=== PATIENT | male | born 1970 | race Caucasian/White ===

== ENCOUNTER 2019-11-14 08:00 | Outpatient (CLI) | payer OTHER ==
--- NOTE | 2019-11-14 16:55 | XRAY Report ---
PROCEDURE: Shoulder 3 View LT INDICATIONS: ACROMIOCLAVICULAR JOINT PAIN TECHNIQUE: 3 views of the shoulder were acquired. COMPARISON: None. FINDINGS: Bones: No fractures or dislocations but a prior acromioplasty may have been performed at the AC join t. The joint is wide, and old trauma or alternatively could explain that appearance.. No suspicious bony lesions. Visualized ribs appear intact. Soft tissues: No suspicious soft tissue calcifications. IMPRESSION: Please correlate clinically for whether prior acromioplasty has been performed. No acute trauma found. Reviewed by: Juvenal Solis MD on 11/14/2019 4:53 PM PDT Approved by: Juvenal Solis MD on 11/14/2019 4:53 PM PDT Station ID: [id number]
[2019-11-14 20:04] LABS: BASOPHILS % (AUTO) 0.4 %; EOSINOPHILS # (AUTO) 0.1 10^3/uL (0.0-0.7); HGB - HEMOGLOBIN 15.3 g/dL (14.0-18.0); MEAN CORPUSCULAR HEMOGLOBIN 31.8 pg (27.0-31.0); MEAN CORPUSCULAR HGB CONC 34.2 g/dL (32.0-36.0); MEAN CORPUSCULAR VOLUME 92.9 fL (80.0-94.0); MEAN PLATELET VOLUME 10.3 fL (7.4-11.4); MONOCYTES # (AUTO) 0.6 10^3/uL (0.0-1.0); MONOCYTES % (AUTO) 7.7 %; NEUTROPHILS # (AUTO) 4.6 10^3/uL (1.5-6.6); NEUTROPHILS % (AUTO) 63.3 %; PLT - PLATELET COUNT 290 10^3/uL (130-450); RED BLOOD COUNT 4.81 10^6/uL (4.70-6.10); RED CELL DISTRIBUTION WIDTH 12.8 % (12.0-15.0); WHITE BLOOD COUNT 7.3 x10^3/uL (4.8-10.8)
[2019-11-14 20:24] LABS: ALBUMIN/GLOBULIN RATIO 2.1 (1.0-2.2); CREATININE 1.1 mg/dL (0.6-1.2); TOTAL PROTEIN 7.4 g/dL (6.7-8.2)
== END 2019-11-14 23:59 | disposition home or self-care (01) ==
LOC: DI.S 08:00
PROVIDERS: ATTEND Physician Assistant Medical
DX: M25.512 Pain in left shoulder (principal); I10 Essential (primary) hypertension
CPT/HCPCS: 36415; 80053; 84443; 85025

== ENCOUNTER 2020-03-24 16:31 | Outpatient (CLI) | payer OTHER ==
--- NOTE | 2020-03-26 10:47 | MRI Report ---
PROCEDURE: Shoulder LT W/O INDICATIONS: STRAIN OF MUSCLES/TENDONS OF LT SHOULDER TECHNIQUE: Noncontrast oblique coronal T2 fast spin echo with fat saturation, oblique sagittal T1 spin echo and T2 fast spin echo with fat saturation, axial T1 spin echo and T2 fast spin echo with fat saturation t hrough the shoulder. COMPARISON: None. FINDINGS: Image quality: Excellent. Rotator cuff: There is distal supraspinatus and infraspinatus tendinosis and low-grade articular and bursal surface partial-thickness tear at their insertions on humeral head extending to musculotendino us junction. Distal subscapularis tendinosis and low-grade intrasubstance partial thickness tear is a lso seen. No full-thickness rotator cuff tendon rupture. No significant rotator cuff muscle atrophy o n sagittal images. Bones and bursae: No bone marrow contusions or fractures. [id number] acromioclavicular joint o steophytic changes are seen with downward osteophyte formation depressing on musculotendinous junctio n of supraspinatus.. The acromion demonstrates conventional anatomy, without an os acromiale. No pa thologic subacromial/subdeltoid bursal fluid is present. Capsule and soft tissues: In the absence of intra-articular contrast, the labrum and glenohumeral li gaments appear grossly intact. The long head of the biceps tendon demonstrates normal location and m orphology. The rotator interval appears normal, without fibrosis. The coracohumeral ligament is nor mal in thickness. IMPRESSION: 1. Tendinosis and low-grade articular and bursal surface partial-thickness tear involving distal supr aspinatus and infraspinatus at their insertions on humeral head extending to musculotendinous junctio n. Distal subscapularis tendinosis and low-grade intrasubstance partial thickness tear. No full-thick ness rotator cuff tendon rupture. 2. Mild acromioclavicular joint osteoarthritis. 3. No gross focal labral tear in the absence of intra-articular contrast. Reviewed by: Augie Ramirez MD on 03/26/2020 10:45 AM PST Approved by: Augie Ramirez MD on 03/26/2020 10:45 AM PST Station ID: [id number]
== END 2020-03-24 16:32 | disposition home or self-care (01) ==
LOC: DI 16:31
PROVIDERS: ATTEND Orthopaedic Surgery
DX: M75.112 Incomplete rotator cuff tear or rupture of left shoulder, not specified as traumatic (principal); M19.012 Primary osteoarthritis, left shoulder

== ENCOUNTER 2020-03-31 22:44 | Emergency (ER) | payer OTHER ==
[2020-03-31] MEDS ORDERED: DEXAMETHASONE 10 MG/ML VIAL PO STA (23:38)
[2020-03-31] MEDS ORDERED: CHERRY SYRUP 10 ML UDC PO ONE (23:38)
[2020-03-31] MEDS ORDERED: KETOROLAC 60 MG/2 ML VIAL IM STA (23:38)
--- NOTE | 2020-04-01 00:57 | ED Physician Documentation ---
History of Present Illness - Stated complaint Stated Complaint: MED REACTION - Chief complaint Chief Complaint: General - History obtained from History obtained from: Patient - History of Present Illness Timing: How many weeks ago (3) - Additonal information Additional information: 49-year-old male who has had a prior injury to his left shoulder has chronic AC osteoarthritis and tendinitis in his shoulder. He has had injections done of cortisone which did help over the summer and these have now worn off and the patient has continued to work. 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 He has had worsening of his symptoms he has been back in to see the orthopedic surgeon and MRI of the shoulder has been done demonstrating the tendinosis and incomplete tear of the rotator cuff. He has not had his follow-up visit as yet. He has come to the emergency department today with progressive and intolerable pain. He is taken IcyHot and aspirin as well as a pain reliever from the first-aid kit at work and none of this is helped. He feels that there is some swelling to his hand today and pain in his shoulder but he is able to move the shoulder through some range of motion but this hurts. He is irritable and his blood pressure is elevated. He does have a history of hypertension that is currently not treated as he had intolerable side effects from his last medication. Review of Systems Constitutional: denies: Fever Eyes: denies: Decreased vision Ears: denies: Ear pain Nose: denies: Congestion Throat: denies: Sore throat Cardiac: denies: Chest pain / pressure, Palpitations Respiratory: denies: Dyspnea, Cough GI: denies: Nausea, Vomiting : denies: Dysuria Musculoskeletal: reports: Extremity pain, Joint pain, Extremity swelling. denies: Neck pain, Back pain Neurologic: denies: Generalized weakness, Focal weakness, Numbness PD PAST MEDICAL HISTORY - Present Medications Home Medications: Ambulatory Orders Medication Instructions Recorded Confirmed traMADol [Ultram] 50 - 100 mg PO Q6H PRN #20 tablet 04/01/20 - Allergies Allergies/Adverse Reactions: Allergies Allergy/AdvReac Type Severity Reaction Status Date / Time No Known Drug Allergies Allergy Verified 03/31/20 23:03 PD ED PE NORMAL - Vitals Vital signs reviewed: Yes (tachy and hypertensive ) - General General: Alert and oriented X 3, Well developed/nourished, Other (Appears to be in pain with test consultant tone and flattened affect) - HEENT HEENT: Atraumatic, PERRL, EOMI - Respiratory Respiratory: No respiratory distress - Derm Derm: Normal color, Warm and dry, No rash - Extremities Extremities: No deformity, Other (There is mild tenderness to the left shoulder anteriorly and laterally. He is able to hold his arm in abduction and there is a fair ROM to the shoulder which is painful but does not arrest movement or cause any significant reaction from the patient.) - Neuro Neuro: Alert and oriented X 3, repair specialist 2-12 intact, No motor deficit, No sensory deficit, Normal speech Eye Opening: Spontaneous Motor: Obeys Commands Verbal: Oriented GCS Score: 15 - Psych Psych: Normal mood, Normal affect Results - Vitals Vitals: Vital Signs - 24 hr 03/31/20 04/01/20 04/01/20 22:57 00:06 00:30 Temperature 37.1 C 37.1 C Heart Rate 130 H 108 H 110 H Respiratory 18 18 16 Rate Blood Pressure 200/131 H 168/110 H 142/96 H O2 Saturation 96 97 94 04/01/20 01:08 Temperature Heart Rate 101 H Respiratory 16 Rate Blood Pressure 148/92 H O2 Saturation 95 Oxygen O2 Source Room air PD MEDICAL DECISION MAKING - ED course Complexity details: reviewed old records, reviewed results, considered differential, d/w patient ED course: 49-year-old male with left shoulder pain that is chronic has an exacerbation of his pain that has become intolerable. He does have a MRI which is reviewed and shows tendinosis and he is administered dexamethasone 10 mg orally and Toradol 60 mg IM and he has some improvement in his pain. His blood pressure and pulse improved dramatically. He is eventually administered tramadol as well and I have provided a prescription for some tramadol. He is reluctant to take any narcotic pain reliever. He does not appear to be getting adequate relief with Tylenol or ibuprofen.He does not have prearranged follow-up with Dr. Loza in 5 days time. I have indicated the patient that treatment of tendinosis usually requires rest of the tendon and I have asked him to stop working and he is reluctant to do this. Departure - Departure Disposition: 01 Home, Self Care Clinical Impression: Tendonitis of shoulder, left Condition: Stable Instructions: Tendonitis and Tenosynovitis Follow-Up: Rober White MD [Provider Admit Priv/Credential] - GILLIAN ASHBY PA-C [Provider Admit Priv/Credential] - Prescriptions: traMADol [Ultram] 50 - 100 mg PO Q6H PRN #20 tablet PRN Reason: Pain Forms: Activity restrictions Discharge Date/Time: 04/01/20 01:08
[2020-04-01] MEDS ORDERED: traMADol 50 MG TABLET PO STA (00:59)
[2020-04-01 01:09] VITALS: BP 148/92
== END 2020-04-01 01:08 | disposition home or self-care (01) ==
LOC: ED 22:44
DX: M75.82 Other shoulder lesions, left shoulder (principal); M70.812 Other soft tissue disorders related to use, overuse and pressure, left shoulder; X50.0XXA Overexertion from strenuous movement or load, initial encounter; Y93.89 Activity, other specified; Y99.0 Civilian activity done for income or pay; M19.012 Primary osteoarthritis, left shoulder; I10 Essential (primary) hypertension; R00.0 Tachycardia, unspecified
CPT/HCPCS: 96372; 99283; 99284; A9270

== ENCOUNTER 2020-05-03 17:05 | Outpatient (CLI) | payer OTHER | END 2020-05-03 17:06 | disposition home or self-care (01) | LOC: COV 17:05 | PROVIDERS: ATTEND Orthopaedic Surgery | DX: Z01.812 Encounter for preprocedural laboratory examination (principal); Z20.828 Contact with and (suspected) exposure to other viral communicable diseases; M75.112 Incomplete rotator cuff tear or rupture of left shoulder, not specified as traumatic ==

== ENCOUNTER 2020-05-09 06:31 | Day surgery (SDC) | payer OTHER ==
[2020-05-09] MEDS ORDERED: LACTATED RINGERS 1,000 ML IV ONE ×2 (06:33→11:57)
[2020-05-09] MEDS ORDERED: ceFAZolin 2 GM/50 ML 2 GM/50 ML BAG IV ONE (06:45)
--- NOTE | 2020-05-09 07:08 | ANESTHESIA ---
Pre-Anesthesia VS, & Labs - Diagnosis L RCR tear - Procedure L shoulder arthroscopy w possible RCR Vital Signs: Temp Pulse Resp BP Pulse Ox 36.8 C 86 12 150/99 H 96 05/09/20 06:33 05/09/20 06:33 05/09/20 06:33 05/09/20 06:33 05/09/20 06:33 Height: 6 ft Weight (kg): 94.3 kg Body Mass Index: 28.2 BMI Classification: Overweight - NPO >8 hours - Lab Results Lab results reviewed: Yes Home Medications and Allergies Home Medications: Ambulatory Orders Losartan/Hydrochlorothiazide [Losartan-Hctz 100-12.5 mg Tab] 1 each PO DAILY 04/24/20 Losartan/Hydrochlorothiazide [Losartan-Hctz 100-12.5 mg Tab] 1 each PO DAILY 1 06/25/19 Allergies/Adverse Reactions: Allergies Allergy/AdvReac Type Severity Reaction Status Date / Time bee venom protein (honey bee) Allergy Anaphylaxis Verified 04/24/20 14:58 menthol Allergy Respiratory Verified 04/24/20 14:58 Anes History & Medical History - Anesthetic History Anesthesia Complications: reports: No previous complications Family history of Anesthesia Complications: Denies Family history of Malignant Hyperthermia: Denies - Medical History Cardiovascular: reports: Hypertension Pulmonary: reports: None Gastrointestinal: reports: GERD Urinary: reports: None Musculoskeletal: reports: None Endocrine/Autoimmune: reports: None Skin: reports: None - Surgical History Orthopedic: Arthroscopic surgery, Other (knee scope) Exam General: Alert, Oriented x3, Cooperative Dental: Poor dentition, Other (none loose, several missing) Mouth Opening: Greater than 4 Fingerbreadths Neck Mobility: Normal Mallampati classification: I Thyromental Distance: greater than 6 cm Respiratory: Lungs clear, Normal breath sounds, No respiratory distress Cardiovascular: Regular rate Neurological: Normal speech Mental/Cognitive Status: Alert/Oriented X3, Normal for patient Cognitive Status: Within normal limits Plan Anesthesia Type: General, Supraclavicular Block Regional Block: Per Surgeon's request for Post Op pain control Consent for Procedure(s) Verified and Reviewed: Yes Code Status: Attempt Resuscitation ASA classification: 2-Mild systemic disease Is this case an emergency?: No
[2020-05-09] MEDS ORDERED: ROPIVACAINE 0.5% PF 20 ML AMPULE ONE (07:10)
[2020-05-09] MEDS ORDERED: MIDAZOLAM 2 MG/2 ML VIAL ONE (07:11)
[2020-05-09] MEDS ORDERED: fentaNYL 100 MCG/2 ML VIAL ONE (07:11)
[2020-05-09] MEDS ORDERED: PROPOFOL 200 MG/20 ML VIAL IVP ONE ×2 (07:13→10:33)
[2020-05-09] MEDS ORDERED: ROCURONIUM 50 MG/5 ML VIAL ONE ×2 (07:15→10:28)
[2020-05-09] MEDS ORDERED: EPINEPHrine 1 MG/ML AMP ONE (07:16)
[2020-05-09] MEDS ORDERED: DEXAMETHASONE 4 MG/ML VIAL ONE (07:17)
[2020-05-09] MEDS ORDERED: LIDOCAINE-MPF 2% 5 ML VIAL ONE (07:17)
[2020-05-09] MEDS ORDERED: fentaNYL 100 MCG/2 ML VIAL IVP PRN (07:59)
[2020-05-09] MEDS ORDERED: METOCLOPRAMIDE 10 MG/2 ML VIAL IVP PRN (07:59)
[2020-05-09] MEDS ORDERED: MORPHINE 2 MG/ML CARPUJECT IVP PRN (07:59)
[2020-05-09] MEDS ORDERED: HYDROmorphone 0.5 MG/0.5 ML SYRINGE IVP PRN ×2 (07:59→11:49)
[2020-05-09] MEDS ORDERED: ATROPINE ABBOJECT 1 MG/10 ML SYRINGE IVP PRN (07:59)
[2020-05-09] MEDS ORDERED: ePHEDrine 50 MG/ML VIAL IVP PRN (07:59)
[2020-05-09] MEDS ORDERED: ONDANSETRON 4 MG/2 ML VIAL IVP PRN (07:59)
[2020-05-09] MEDS ORDERED: NALOXONE 0.4 MG/ML VIAL IVP PRN (07:59)
[2020-05-09] MEDS ORDERED: LACTATED RINGERS 1,000 ML IV SCH (08:00)
[2020-05-09] MEDS ORDERED: EPINEPHrine 1 MG/ML AMP IR ONE (08:40)
[2020-05-09] MEDS ORDERED: ONDANSETRON 4 MG/2 ML VIAL ONE ×2 (08:45→12:03)
[2020-05-09] MEDS ORDERED: ACETAMINOPHEN 1,000 MG/100 ML 100 ML IV ONE (08:45)
[2020-05-09] MEDS ORDERED: ePHEDrine 50 MG/ML VIAL IVP ONE (09:16)
[2020-05-09] MEDS ORDERED: SUGAMMADEX 200 MG/2 ML VIAL IVP ONE (11:20)
--- NOTE | 2020-05-09 11:29 | OPERATIVE REPORT ---
Operative Report - General Procedure Date: 05/09/20 Planned Procedure: Arthroscopy, possible rotator cuff repair left shoulder Pre-Op Diagnosis: Rotator cuff tear left shoulder Procedure Performed: Arthroscopy left shoulder with arthroscopic assisted mini open repair rotator cuff left shoulder Post Op Diagnosis: Complete, full-thickness retracted rotator cuff tear left shoulder - Procedure Note Primary Surgeon: Rober White MD Secondary Surgeon: Dino CALI Anesthesia Provider: Tia Ivory CRNA Anesthesia Technique: General ET tube, Regional block Estimated Blood Loss (mL): 50 Indications: 50-year-old man with chronic atraumatic pain left shoulder. Shoulder pain has persisted over the past several months despite nonoperative treatment. He has had previous surgery to the left shoulder. His previous surgery was several years ago and consisted of a repair of an acromioclavicular dislocation. He has had also debridement of the left shoulder in the past. 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 His routine radiographs are normal. His MRI scan suggested both bursal and articular partial tears but not a definite complete tear. His exam showed relatively good strength but painful movement with positive impingement signs and good motion Findings: At the time of surgery, glenohumeral arthroscopy revealed intact labrum and bi ceps. The articular cartilage of the glenohumeral joint appeared normal. The supraspinatus footprint looked relatively normal as well as the subscapularis. Most of the abnormality was on entering the subacromial space which was very difficult to visualize initially because of bursitis and adhesions but that the subacromial space. After removal of adhesions and bursal tissue, a rotator cuff tear was identified mostly involving the junction of the supraspinatus and infraspinatus. This was a more posterior tear was retracted. The anterior portion of the cuff did not have much mobility and neither did the posterior. There was a relatively fixed tear.Because of lack of complete visualization of the subacromial space, a mini open procedure was utilized, partly because of all of the previous adhesions, inflammation and some bleeding. Complications: None noted - Other Other Information/Narrative: This is a 50-year-old gentleman who was brought to the operating room. He is given general endotracheal anesthesia as well as a shoulder block. He was placed supine in a beachchair position. His head was secured with a disposable facemask. His neck was placed in a neutral position and slightly turned to the right. His knees were bent and put. He was placed in sequential compression device to lower extremities. The left shoulder and upper extremity were prepped and draped in a sterile manner in the usual fashion. A timeout procedure was performed by the entire operating room team and all were in agreement. The bony landmarks of the left shoulder were outlined with a sterile marking pen. A posterior portal was established for glenohumeral arthroscopy using the [employer] 4 mm 30 degree of black diagnostic arthroscope conjunction with [employer] video camera. The [employer] arthroscopic pump was brought through the arthroscope. An anterior portal was established under direct visualization in the safe triangle or rotator cuff interval. The subscapularis was completely intact and the supraspinatus appeared to be intact from the articular surface. The biceps tendon was intact and the biceps tendon was brought as much into the joint as possible. There was no sign of tendinosis to the biceps tendon. The labrum was intact. He did have good stability of the shoulder under anesthesia as well. Subacromial arthroscopy was next performed redirecting the arthroscope into the posterior aspect of the subacromial space. A lateral subacromial portal was established to allow for the shaver and radiofrequency probe. It was tedious to remove all of the thickened bursal tissue associated with bands of what appeared to be adhesions or scar tissue from previous surgery. There was no sign of adhesive capsulitis to the glenohumeral joint. The rotator cuff tear was identified with an exposed posterior tear with retraction. The rotator cuff tear was relatively fixed and difficult to mobilize despite attempts at removing tissue on both sides of the cuff to mobilize the tendon. A stay suture had been inserted into the rotator cuff, fiber tape using the scorpion. Because of the lack of progress, adhesions, inflamed tissue and bleeding, a mini open repair was then performed by extending the lateral subacromial incision slightly proximally and distally. A 2 inch incision was utilized. Deltoid fibers were split and retractors were placed anteriorly and posteriorly and a Derra retractor was placed superiorly 2 horizontal mattress sutures were inserted into the anterior cuff. This fiber tape was then pulled and each suture was secured with a 4.75 Arthrex swivel lock suture anchor. The anchor stability was tested and was found to be stable to traction. The sutures were then cut. The suture anchors were flushed to bone. The wound was then thoroughly irrigated with the lavage present from arthroscopy. The deltoid was closed with 0 Vicryl subcutaneous tissue was closed with 2-0 Vicryl. The skin was closed with Dermabond. To the arthroscopic portals were closed with 3-0 nylon. Dry sterile dressing of bacitracin was applied a sling with abduction adduction pillow was applied to the left upper extremity. He tolerated the procedure well. A physician bus assistant was utilized to help with retraction and exposure of the rotator cuff as well as closure, prepping and draping.
[2020-05-09] MEDS ORDERED: KETOROLAC 15 MG/ML VIAL IVP STA (11:49)
[2020-05-09] MEDS ORDERED: oxyCODONE 5 MG TABLET PO PRN (11:49)
[2020-05-09 12:20] VITALS: BP 130/78
--- NOTE | 2020-05-09 13:41 | ANESTHESIA POST OP EVALUATION ---
Anesthesia Post Eval - Post Anesthesia Eval Vitals: Last Vital Signs Temp 36.7 C 05/09/20 12:15 Pulse 85 05/09/20 12:15 Resp 14 05/09/20 12:15 BP 130/78 05/09/20 12:15 Pulse Ox 93 05/09/20 12:15 CV Function Including HR & BP: positive: Stable Pain Control: positive: Satisfactory Nausea & Vomiting: positive: Negative Mental Status: positive: Baseline Respiratory Status: Airway Patent Hydration Status: Satisfactory Anesthesia Complications: positive: None
== END 2020-05-09 06:32 | disposition home or self-care (01) ==
LOC: SDS 06:31
PROVIDERS: ATTEND Orthopaedic Surgery
DX: M75.122 Complete rotator cuff tear or rupture of left shoulder, not specified as traumatic (principal); I10 Essential (primary) hypertension; F17.290 Nicotine dependence, other tobacco product, uncomplicated
CPT/HCPCS: 23412; C1713; J0131; J0690; J1170; J7120

== ENCOUNTER 2020-08-03 12:15 | Outpatient (CLI) | payer OTHER | END 2020-08-03 12:16 | disposition home or self-care (01) | LOC: LAB.N 12:15 | PROVIDERS: ATTEND Orthopaedic Surgery | DX: Z01.818 Encounter for other preprocedural examination (principal); Z20.822 Contact with and (suspected) exposure to COVID-19 ==

== ENCOUNTER 2020-08-16 13:43 | Outpatient (CLI) | payer OTHER | END 2020-08-16 13:44 | disposition home or self-care (01) | LOC: LAB.N 13:43 | PROVIDERS: ATTEND Orthopaedic Surgery | DX: Z01.812 Encounter for preprocedural laboratory examination (principal); Z20.822 Contact with and (suspected) exposure to COVID-19 ==

== ENCOUNTER 2020-08-22 12:02 | Day surgery (SDC) | payer OTHER ==
[2020-08-22] MEDS ORDERED: CELECOXIB 100 MG CAPSULE PO ONE (12:19)
[2020-08-22] MEDS ORDERED: ACETAMINOPHEN 1,000 MG/100 ML 100 ML IV ONE (12:19)
[2020-08-22] MEDS ORDERED: MIDAZOLAM 2 MG/2 ML VIAL ONE (13:07)
[2020-08-22] MEDS ORDERED: fentaNYL 100 MCG/2 ML VIAL ONE ×2 (13:07→14:04)
[2020-08-22] MEDS ORDERED: ROPIVACAINE 0.5% PF 20 ML AMPULE ONE (13:08)
[2020-08-22] MEDS ORDERED: LIDOCAINE-MPF 2% 5 ML VIAL ONE (13:09)
[2020-08-22] MEDS ORDERED: NALOXONE 0.4 MG/ML VIAL IVP PRN (13:13)
[2020-08-22] MEDS ORDERED: ONDANSETRON 4 MG/2 ML VIAL IVP PRN (13:13)
[2020-08-22] MEDS ORDERED: HYDROmorphone 0.5 MG/0.5 ML SYRINGE IVP PRN (13:13)
[2020-08-22] MEDS ORDERED: ePHEDrine 50 MG/ML VIAL IVP PRN (13:13)
[2020-08-22] MEDS ORDERED: ATROPINE ABBOJECT 1 MG/10 ML SYRINGE IVP PRN (13:13)
[2020-08-22] MEDS ORDERED: MORPHINE 2 MG/ML CARPUJECT IVP PRN (13:13)
[2020-08-22] MEDS ORDERED: fentaNYL 100 MCG/2 ML VIAL IVP PRN (13:13)
[2020-08-22] MEDS ORDERED: METOCLOPRAMIDE 10 MG/2 ML VIAL IVP PRN (13:13)
--- NOTE | 2020-08-22 13:13 | ANESTHESIA ---
Pre-Anesthesia VS, & Labs - Diagnosis L frozen shoulder - Procedure L frozen shoulder manipulation under anesthesia Vital Signs: Temp Pulse Resp BP Pulse Ox 36.3 C L 78 16 135/94 H 95 08/22/20 12:25 08/22/20 12:25 08/22/20 12:25 08/22/20 12:25 08/22/20 12:25 Height: 6 ft Weight (kg): 89 kg Body Mass Index: 26.6 BMI Classification: Overweight - NPO >8 hours - Lab Results Lab results reviewed: Yes Home Medications and Allergies Losartan/Hydrochlorothiazide [Losartan-Hctz 100-12.5 mg Tab] 1 each PO DAILY 04/24/20 Allergies/Adverse Reactions: Allergies Allergy/AdvReac Type Severity Reaction Status Date / Time bee venom protein (honey bee) Allergy Anaphylaxis Verified 04/24/20 14:58 menthol Allergy Respiratory Verified 04/24/20 14:58 Anes History & Medical History - Anesthetic History Anesthesia Complications: reports: No previous complications Family history of Anesthesia Complications: Denies Family history of Malignant Hyperthermia: Denies - Medical History Cardiovascular: reports: Hypertension Pulmonary: reports: None Gastrointestinal: reports: GERD Urinary: reports: None Musculoskeletal: reports: None Endocrine/Autoimmune: reports: None Skin: reports: None - Surgical History Orthopedic: reports: Arthroscopic surgery, Other Exam General: Alert, Oriented x3, Cooperative Dental: Poor dentition (none loose, several missing) Mouth Openin Fingerbreadth Neck Mobility: Normal Mallampati classification: II Thyromental Distance: 4-6 cm Respiratory: Lungs clear, Normal breath sounds, No respiratory distress Cardiovascular: Regular rate Neurological: Normal speech Mental/Cognitive Status: Alert/Oriented X3, Normal for patient Cognitive Status: Within normal limits Plan Anesthesia Type: MAC (back-up), Supraclavicular Block Regional Block: Per Surgeon's request for Post Op pain control Consent for Procedure(s) Verified and Reviewed: Yes Code Status: Attempt Resuscitation ASA classification: 2-Mild systemic disease Is this case an emergency?: No
[2020-08-22] MEDS ORDERED: LACTATED RINGERS 1,000 ML IV SCH (14:00)
[2020-08-22] MEDS ORDERED: oxyCODONE 5 MG TABLET PO PRN (14:12)
[2020-08-22] MEDS ORDERED: LACTATED RINGERS 1,000 ML IV ONE (14:12)
[2020-08-22] MEDS ORDERED: KETOROLAC 15 MG/ML VIAL IVP STA (14:12)
--- NOTE | 2020-08-22 14:18 | OPERATIVE REPORT ---
Operative Report - General Procedure Date: 08/22/20 Planned Procedure: Manipulation of left shoulder under general anesthesia Pre-Op Diagnosis: Adhesive capsulitis left shoulder, status post rotator cuff repair left carlitos Procedure Performed: Manipulation of left shoulder under anesthesia Post Op Diagnosis: Same as preoperative diagnosis - Procedure Note Primary Surgeon: Rober White MD Anesthesia Provider: Robin Pinon CRNA Anesthesia Technique: Moderate sedation, Regional block Estimated Blood Loss (mL): 0 Indications: 50-year-old gentleman who has had at least 3 surgeries to his left shoulder, the most recent was a rotator cuff repair to the left shoulder done approximately 3 months ago. He has reached a plateau in his physical therapy and had restrictive active and restricted passive motion to left shoulder. He had limited forward flexion and limited external rotation, less than 90 degrees of forward flexion, less than 20 degrees external rotation. He has no history of any infection to left shoulder. At his rotator cuff surgery, he did have a lot of subacromial scarring from previous surgery Findings: Restricted active and passive motion left glenohumeral joint Complications: None - Other Other Information/Narrative: The patient was brought to the operating room, placed in the supine position. After satisfactory anesthesia was achieved, a timeout procedure was performed by the entire operating room team. The shoulder was manipulated using the humerus as a fulcrum, gentle pressure and forward flexion until full forward flexion was gradually achieved. Next, external rotation was done with the arm at the left side. Full external rotation was achieved. The passive restriction of shoulder motion was markedly improved with the manipulation. The patient has a shoulder block. And was awake enough to visualize the marked improvement in motion compared to prior to the manipulation. He tolerated procedure well.
[2020-08-22] MEDS ORDERED: ONDANSETRON 4 MG/2 ML VIAL ONE (14:21)
[2020-08-22 14:29] VITALS: BP 123/77
--- NOTE | 2020-08-22 15:00 | ANESTHESIA POST OP EVALUATION ---
Anesthesia Post Eval - Post Anesthesia Eval Vitals: Last Vital Signs Temp 36.6 C 08/22/20 14:28 Pulse 82 08/22/20 14:28 Resp 16 08/22/20 14:28 BP 123/77 08/22/20 14:28 Pulse Ox 98 08/22/20 14:28 CV Function Including HR & BP: Stable Pain Control: Satisfactory Nausea & Vomiting: Negative Mental Status: Baseline Respiratory Status: Airway Patent Hydration Status: Satisfactory Anesthesia Complications: None
== END 2020-08-22 12:03 | disposition home or self-care (01) ==
LOC: SDS 12:02
PROVIDERS: ATTEND Orthopaedic Surgery
DX: M75.02 Adhesive capsulitis of left shoulder (principal); I10 Essential (primary) hypertension; K21.9 Gastro-esophageal reflux disease without esophagitis; E66.9 Obesity, unspecified; Z68.26 Body mass index [BMI] 26.0-26.9, adult; Z98.890 Other specified postprocedural states; Z79.899 Other long term (current) drug therapy
CPT/HCPCS: 23700; A9270; J0131; J7120

== ENCOUNTER 2022-01-02 08:00 | Outpatient (CLI) | payer MEDICAID ==
--- NOTE | 2022-01-02 14:02 | XRAY Report ---
PROCEDURE: Shoulder 3 View LT INDICATIONS: LEFT SHOULDER ADHESIVE CAPSULITIS TECHNIQUE: 3 views of the shoulder were acquired. COMPARISON: Left shoulder radiographs 11/14/2019. FINDINGS: Bones: No fractures or dislocations. There is mild superior subluxation of the humeral head in rela tion to the glenoid. There is heterotopic ossification at the acromial clavicular joint which is incr eased compared to 2019. There is widening of the acromial clavicular joint. No suspicious bony lesion s. Visualized ribs appear intact. Soft tissues: No suspicious soft tissue calcifications. IMPRESSION: Moderate degenerative change at the left shoulder with suspected rotator cuff pathology. There is minimal increased heterotopic calcification about the acromioclavicular joint. Reviewed by: Angelo Lerma MD on 01/02/2022 2:01 PM PDT Approved by: Angelo Lerma MD on 01/02/2022 2:01 PM PDT Station ID: [id number]
== END 2022-01-02 23:59 | disposition home or self-care (01) ==
LOC: DI.S 08:00
PROVIDERS: ATTEND Physician Assistant
DX: M19.012 Primary osteoarthritis, left shoulder (principal)

== ENCOUNTER 2022-02-19 07:43 | Outpatient (CLI) | payer MEDICAID ==
[2022-02-19 14:13] LABS: BASOPHILS % (AUTO) 0.6 %; EOSINOPHILS # (AUTO) 0.2 10^3/uL (0.0-0.7); EOSINOPHILS % (AUTO) 2.1 %; HCT - HEMATOCRIT 48.1 % (42.0-52.0); HGB - HEMOGLOBIN 16.2 g/dL (14.0-18.0); LYMPHOCYTES # (AUTO) 2.2 10^3/uL (1.5-3.5); LYMPHOCYTES % (AUTO) 31.1 %; MEAN CORPUSCULAR HEMOGLOBIN 31.5 pg (27.0-31.0); MEAN CORPUSCULAR HGB CONC 33.7 g/dL (32.0-36.0); MEAN CORPUSCULAR VOLUME 93.6 fL (80.0-94.0); MEAN PLATELET VOLUME 10.4 fL (7.4-11.4); MONOCYTES # (AUTO) 0.7 10^3/uL (0.0-1.0); MONOCYTES % (AUTO) 9.7 %; NEUTROPHILS # (AUTO) 3.9 10^3/uL (1.5-6.6); NEUTROPHILS % (AUTO) 55.6 %; PLT - PLATELET COUNT 260 10^3/uL (130-450); RED BLOOD COUNT 5.14 10^6/uL (4.70-6.10); RED CELL DISTRIBUTION WIDTH 13.2 % (12.0-15.0)
[2022-02-19 15:11] LABS: THYROID STIMULATING HORMONE 2.03 uIU/mL (0.34-5.60)
[2022-02-19 15:23] LABS: ALBUMIN 4.6 g/dL (3.2-5.5); ALBUMIN/GLOBULIN RATIO 1.4 (1.0-2.2); ALKALINE PHOSPHATASE 48 IU/L (42-121); ALT ALANINE AMINOTRANSFERASE 48 IU/L (10-60); AST ASPARTATE AMINOTRANSFERASE 27 IU/L (10-42); BILIRUBIN,TOTAL 1.5 mg/dL (0.2-1.0); BUN - BLOOD UREA NITROGEN 15 mg/dL (6-20); CALCIUM 9.5 mg/dL (8.5-10.3); CARBON DIOXIDE - CO2 29 mmol/L (21-32); CHLORIDE 102 mmol/L (101-111); CHOL/HDL RATIO 5.6 (<5.0); CHOLESTEROL 236 mg/dL; CREATININE 1.2 mg/dL (0.6-1.2); GFR - MDRD 63 (>89); GLUCOSE 147 mg/dL (70-100); HDL CHOLESTEROL 42 mg/dL; LDL CHOLESTEROL,CALCULATED 154 mg/dL; LDL/HDL RATIO 3.7 (<3.6); POTASSIUM 4.4 mmol/L (3.5-5.0); SODIUM 138 mmol/L (135-145); TOTAL PROTEIN 7.8 g/dL (6.7-8.2); TRIGLYCERIDES 202 mg/dL; VLDL CHOLESTEROL 40 mg/dL
[2022-02-20 07:10] LABS: RPR Non Reactive (Non Reactive)
== END 2022-02-19 07:44 | disposition home or self-care (01) ==
LOC: LAB.S 07:43
PROVIDERS: ATTEND Registered Nurse
DX: R25.1 Tremor, unspecified (principal); Z79.899 Other long term (current) drug therapy; Z13.220 Encounter for screening for lipoid disorders; Z57.4 Occupational exposure to toxic agents in agriculture
CPT/HCPCS: 36415; 80053; 80061; 83721; 84443; 85025; 86592

== ENCOUNTER 2022-08-27 11:14 | Outpatient (CLI) | payer MEDICAID ==
[2022-08-27 14:50] LABS: CALCIUM 9.3 mg/dL (8.5-10.3); POTASSIUM 3.8 mmol/L (3.5-5.0)
[2022-08-27 14:51] LABS: ESTIMATED AVERAGE GLUCOSE 126 mg/dL (70-100)
== END 2022-08-27 11:15 | disposition home or self-care (01) ==
LOC: LAB.S 11:14
PROVIDERS: ATTEND Nurse Practitioner
DX: R73.01 Impaired fasting glucose (principal)
CPT/HCPCS: 36415; 80048; 83036

== ENCOUNTER 2022-09-11 20:24 | Outpatient (CLI) | payer MEDICAID ==
--- NOTE | 2022-09-12 13:32 | Ultrasound Report ---
PROCEDURE: Chest INDICATIONS: SOFT TISSUE MASS TECHNIQUE: Real-time scanning was performed, and a suitable site was marked by the tnt powder worker for thoracentesis to be performed by the referring clinician. COMPARISON: None. FINDINGS: Sonographic images of the left shoulder demonstrate a 10 x 5 x 11 mm focus of increased echogenicity there is small central areas of decreased echogenicity. Mild increased vascularity. IMPRESSION: Complex appearance of echogenicity at the area of palpable concern as above. It does not appear consi stent with a simple lipoma or cyst. There is considered indeterminate on the basis of this exam and M RI is recommended for further evaluation. Reviewed by: Patricia Rodriguez MD on 09/12/2022 1:31 PM PDT Approved by: Patricia Rodriguez MD on 09/12/2022 1:31 PM PDT Station ID: [id number]
== END 2022-09-11 20:25 | disposition home or self-care (01) ==
LOC: DI 20:24
PROVIDERS: ATTEND Nurse Practitioner
DX: R93.6 Abnormal findings on diagnostic imaging of limbs (principal); R93.89 Abnormal findings on diagnostic imaging of other specified body structures

== ENCOUNTER 2022-09-25 15:40 | Outpatient (CLI) | payer MEDICAID ==
[~2022-09-25 15:40] MED LIST: GADOBUTROL 10 MMOL/10 ML VIAL ONE
[2022-09-25] MEDS ORDERED: GADOBUTROL 10 MMOL/10 ML VIAL IVP ONE (17:08)
--- NOTE | 2022-09-26 11:18 | MRI Report ---
PROCEDURE: SHOULDER W/WO - LT INDICATIONS: SOFT TISSUE MASS TECHNIQUE: Noncontrast oblique coronal T1 spin echo and T2 fast spin echo with fat saturation, oblique sagittal T1 spin echo and T2 fast spin echo with fat saturation, axial T1 spin echo and T2 fast spin echo with fat saturation through the shoulder. Post-contrast oblique coronal, oblique sagittal, and axial T1 spin echo with fat saturation through the shoulder. COMPARISON: Ultrasound chest, 09/11/2022. X-ray left shoulder, 01/02/2022. MR left shoulder, 03/24/2020 . FINDINGS: Image quality: Excellent. Rotator cuff: There are postsurgical changes related to rotator cuff tendon repair. Suspect full-thic kness tear of the repaired tendons with tendon retraction. There is severe infraspinous muscle atroph y and supraspinous muscle atrophy. Moderate subscapularis tendinosis is present. No full-thickness tendon tear. Bones and bursae: No suspicious bone marrow enhancement. No bone marrow contusions or fractures. Mitchell spect acromioplasty. There is moderate glenohumeral joint degeneration. Pathologic subacromial/subdel toid bursal fluid is present. Capsule and soft tissues: There is a subtle 0.9 x 1.0 cm subcutaneous fat lobule in the area of inte rest, demonstrating no abnormal enhancement. It has identical MR signal to adjacent subcutaneous fat, compatible with a small lipoma. There is low-grade degenerative labral fraying. In the absence of intra-articular contrast, the labru m and glenohumeral ligaments appear intact. The long head of the biceps tendon demonstrates normal l ocation and morphology. The rotator interval appears normal, without fibrosis. The coracohumeral li gament is normal in thickness. IMPRESSION: 1. The palpable soft tissue nodule is compatible with a small subcutaneous lipoma. 2. Postsurgical changes related to rotator cuff tendon repair. Suspect full-thickness tear of the rep aired tendon. There is severe infraspinous muscle atrophy and mild supraspinous muscle atrophy. 3. Moderate subscapularis tendinosis without full-thickness tendon tear. 4. Moderate glenohumeral joint degeneration. 5. Suspect acromioplasty. Reviewed by: Dayne Poon MD on 09/26/2022 11:17 AM PDT Approved by: Dayne Poon MD on 09/26/2022 11:17 AM PDT Station ID: [id number]
== END 2022-09-25 15:41 | disposition home or self-care (01) ==
LOC: DI 15:40
PROVIDERS: ATTEND Nurse Practitioner
DX: M19.012 Primary osteoarthritis, left shoulder (principal); M62.512 Muscle wasting and atrophy, not elsewhere classified, left shoulder; M75.92 Shoulder lesion, unspecified, left shoulder; M79.9 Soft tissue disorder, unspecified
CPT/HCPCS: 73223; A9585

== ENCOUNTER 2022-12-11 06:18 | Day surgery (SDC) | payer MEDICAID ==
[2022-12-11] MEDS ORDERED: LACTATED RINGERS 1,000 ML IV ONE ×2 (06:29→07:55)
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
[2022-12-11] MEDS ORDERED: PROPOFOL 500 MG/50 ML 500 MG/50 ML VIAL ONE (07:15)
[2022-12-11] MEDS ORDERED: GLYCOPYRROLATE 1 MG/5 ML VIAL ONE (07:15)
--- NOTE | 2022-12-11 07:19 | HISTORY & PHYSICAL EXAMINATION ---
Chief Complaint - Chief Complaint Chief Complaint: here for colonoscopy History of Present Illness - History Obtained From Records Reviewed: yes History obtained from: pt Exam Limitations: none - History of Present Illness HPI Comment/Other: here for colonoscopy/ colon cancer screening. no problems. no fhx colon ca History - Past Medical History Cardiovascular: reports: Hypertension Respiratory: reports: None Neuro: reports: Tremors Endocrine/Autoimmune: reports: Type 2 diabetes GI: reports: GERD : reports: None HEENT: reports: None Psych: reports: None Musculoskeletal: reports: None Derm: reports: None MRSA Hx?: No - Past Surgical History Ortho: reports: Arthroscopic surgery, Other Meds/Allgy - Home Medications Home Medications: Ambulatory Orders Medication Instructions Recorded Confirmed Losartan/Hydrochlorothiazide 25 each PO DAILY 04/24/20 12/10/22 [Losartan-Hctz 100-12.5 mg Tab] Gabapentin [Neurontin] 300 mg PO HS 12/10/22 12/10/22 Propranolol [Inderal] 40 mg PO TID 12/10/22 12/10/22 metFORMIN [Glucophage] 500 mg PO BIDWM 12/10/22 12/10/22 - Allergies Allergies/Adverse Reactions: Allergies Allergy/AdvReac Type Severity Reaction Status Date / Time bee venom protein (honey bee) Allergy Anaphylaxis Verified 04/24/20 14:58 menthol Allergy Respiratory Verified 04/24/20 14:58 Review of Systems - Other Findings Other Findings: 10 pt ros as above otherwise unremarkable Exam - Vital Signs Vital Signs: Vital Signs x48h Temp Pulse Resp BP Pulse Ox 12/11/22 06:24 36.2 C L 59 L 16 130/86 H 94 - Physical Exam General Appearance: positive: Alert Eyes Bilateral: positive: PERRL, EOMI, No scleral icterus ENT: positive: No signs of dehydration Neck: positive: No JVD, Trachea midline Respiratory: positive: No respiratory distress Cardiovascular: positive: Regular rate & rhythm Abdomen: positive: No distention Neurologic/Psychiatric: positive: Oriented x3 Conclusion/Plan - Problem List (1) Colon cancer screening Conclusion/Plan: plan colonoscopy. parq held and consent obtained
[2022-12-11] MEDS ORDERED: MIDAZOLAM 2 MG/2 ML VIAL ONE (07:22)
--- NOTE | 2022-12-11 10:49 | ANESTHESIA POST OP EVALUATION ---
Anesthesia Post Eval - Post Anesthesia Eval Vitals: Last Vital Signs Temp 36.1 C L 12/11/22 08:26 Pulse 72 12/11/22 08:26 Resp 16 12/11/22 08:26 BP 118/78 12/11/22 08:26 Pulse Ox 96 12/11/22 08:26 O2 Flow Rate CV Function Including HR & BP: Stable Pain Control: Satisfactory Nausea & Vomiting: Negative Mental Status: Baseline Respiratory Status: Airway Patent Hydration Status: Satisfactory Anesthesia Complications: None
[2022-12-11 11:54] VITALS: BP 118/78; O2SAT 96
== END 2022-12-11 06:19 | disposition home or self-care (01) ==
LOC: SDS 06:18
PROVIDERS: ATTEND Surgery
PROC: 0DBL8ZX Excision of Transverse Colon, Via Natural or Artificial Opening Endoscopic, Diagnostic (ICD-10-PCS; principal; 2022-12-11 07:30)
DX: Z12.11 Encounter for screening for malignant neoplasm of colon (principal); D12.3 Benign neoplasm of transverse colon; K57.30 Diverticulosis of large intestine without perforation or abscess without bleeding; E11.9 Type 2 diabetes mellitus without complications; I10 Essential (primary) hypertension; Z79.84 Long term (current) use of oral hypoglycemic drugs
CPT/HCPCS: 45380; J7120

== ENCOUNTER 2023-05-16 19:56 | Outpatient (CLI) | payer MEDICAID | END 2023-05-16 19:57 | disposition critical access hospital (66) | LOC: EMS 19:56 | DX: S01.81XA Laceration without foreign body of other part of head, initial encounter (principal); S01.91XA Laceration without foreign body of unspecified part of head, initial encounter; S11.91XA Laceration without foreign body of unspecified part of neck, initial encounter; S10.91XA Abrasion of unspecified part of neck, initial encounter; S09.92XA Unspecified injury of nose, initial encounter; Y04.2XXA Assault by strike against or bumped into by another person, initial encounter; Y92.009 Unspecified place in unspecified non-institutional (private) residence as the place of occurrence of the external cause | CPT/HCPCS: A0425; A0429; A0999 ==

== ENCOUNTER 2023-05-16 20:23 | Emergency (ER) | payer MEDICAID ==
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
[2023-05-17] MEDS: oxyCODONE/ACET 5/325 Prepack 4 PO STA (00:03)
[2023-05-17 00:10] VITALS: BP 140/90; O2SAT 98
== END 2023-05-17 00:05 | disposition home or self-care (01) ==
LOC: EDUNIT# → ED 20:23
DX: S02.2XXA Fracture of nasal bones, initial encounter for closed fracture (principal); S01.01XA Laceration without foreign body of scalp, initial encounter; Y00.XXXA Assault by blunt object, initial encounter; Y92.009 Unspecified place in unspecified non-institutional (private) residence as the place of occurrence of the external cause; Z79.899 Other long term (current) drug therapy
CPT/HCPCS: 99284

== ENCOUNTER 2023-06-22 09:11 | Outpatient (CLI) | payer MEDICAID ==
[2023-06-22 15:32] LABS: BASOPHILS % (AUTO) 0.3 %; EOSINOPHILS # (AUTO) 0.1 10^3/uL (0.0-0.7); EOSINOPHILS % (AUTO) 1.1 %; HGB - HEMOGLOBIN 15.7 g/dL (14.0-18.0); LYMPHOCYTES # (AUTO) 1.6 10^3/uL (1.5-3.5); LYMPHOCYTES % (AUTO) 24.6 %; MEAN CORPUSCULAR HEMOGLOBIN 31.7 pg (27.0-31.0); MEAN CORPUSCULAR HGB CONC 32.7 g/dL (32.0-36.0); MEAN CORPUSCULAR VOLUME 96.8 fL (80.0-94.0); MEAN PLATELET VOLUME 10.5 fL (7.4-11.4); MONOCYTES # (AUTO) 0.6 10^3/uL (0.0-1.0); MONOCYTES % (AUTO) 9.7 %; NEUTROPHILS # (AUTO) 4.2 10^3/uL (1.5-6.6); PLT - PLATELET COUNT 311 10^3/uL (130-450); RED BLOOD COUNT 4.96 10^6/uL (4.70-6.10); RED CELL DISTRIBUTION WIDTH 13.6 % (12.0-15.0); WHITE BLOOD COUNT 6.6 x10^3/uL (4.8-10.8)
[2023-06-22 15:45] LABS: ALBUMIN 4.5 g/dL (3.2-5.5); ALBUMIN/GLOBULIN RATIO 1.6 (1.0-2.2); ALKALINE PHOSPHATASE 51 IU/L (42-121); ALT ALANINE AMINOTRANSFERASE 43 IU/L (10-60); AST ASPARTATE AMINOTRANSFERASE 30 IU/L (10-42); BILIRUBIN,TOTAL 1.9 mg/dL (0.2-1.0); BUN - BLOOD UREA NITROGEN 13 mg/dL (6-20); CALCIUM 9.6 mg/dL (8.5-10.3); CARBON DIOXIDE - CO2 30 mmol/L (21-32); CHLORIDE 100 mmol/L (101-111); CHOL/HDL RATIO 4.1 (<5.0); CHOLESTEROL 176 mg/dL; GFR - MDRD 78 (>89); GLUCOSE 150 mg/dL (74-104); HDL CHOLESTEROL 43 mg/dL; LDL CHOLESTEROL,CALCULATED 76 mg/dL; LDL/HDL RATIO 1.8 (<3.6); POTASSIUM 4.5 mmol/L (3.5-4.5); SODIUM 136 mmol/L (135-145); TOTAL PROTEIN 7.4 g/dL (6.4-8.9); TRIGLYCERIDES 284 mg/dL (48-352); VLDL CHOLESTEROL 57 mg/dL
[2023-06-22 15:56] LABS: THYROID STIMULATING HORMONE 1.87 uIU/mL (0.34-5.60)
== END 2023-06-22 09:12 | disposition home or self-care (01) ==
LOC: LAB.S 09:11
PROVIDERS: ATTEND Registered Nurse
DX: Z13.228 Encounter for screening for other metabolic disorders (principal); Z13.220 Encounter for screening for lipoid disorders; Z13.29 Encounter for screening for other suspected endocrine disorder; Z13.0 Encounter for screening for diseases of the blood and blood-forming organs and certain disorders involving the immune mechanism
CPT/HCPCS: 36415; 80053; 80061; 83721; 84443; 85025

== ENCOUNTER 2023-06-29 12:21 | Emergency (ER) | payer MEDICAID ==
[2023-06-29 12:44] LABS: BASOPHILS % (AUTO) 0.5 %; EOSINOPHILS # (AUTO) 0.1 10^3/uL (0.0-0.7); EOSINOPHILS % (AUTO) 1.1 %; HCT - HEMATOCRIT 43.8 % (42.0-52.0); HGB - HEMOGLOBIN 14.9 g/dL (14.0-18.0); LYMPHOCYTES # (AUTO) 1.7 10^3/uL (1.5-3.5); LYMPHOCYTES % (AUTO) 26.6 %; MEAN CORPUSCULAR HEMOGLOBIN 31.4 pg (27.0-31.0); MEAN CORPUSCULAR VOLUME 92.2 fL (80.0-94.0); MEAN PLATELET VOLUME 9.5 fL (7.4-11.4); MONOCYTES # (AUTO) 0.5 10^3/uL (0.0-1.0); MONOCYTES % (AUTO) 7.6 %; NEUTROPHILS # (AUTO) 4.1 10^3/uL (1.5-6.6); NEUTROPHILS % (AUTO) 63.9 %; PLT - PLATELET COUNT 241 10^3/uL (130-450); RED BLOOD COUNT 4.75 10^6/uL (4.70-6.10); WHITE BLOOD COUNT 6.4 x10^3/uL (4.8-10.8)
[2023-06-29 12:59] LABS: ALBUMIN 4.3 g/dL (3.2-5.5); ALBUMIN/GLOBULIN RATIO 1.8 (1.0-2.2); BILIRUBIN,TOTAL 1.5 mg/dL (0.2-1.0); CALCIUM 9.4 mg/dL (8.5-10.3); CREATININE 0.9 mg/dL (0.6-1.3); POTASSIUM 4.1 mmol/L (3.5-4.5); TOTAL PROTEIN 6.7 g/dL (6.4-8.9)
[2023-06-29 13:05] LABS: TROPONIN I HIGH SENSITIVITY 3.4 ng/L (2.3-19.7)
--- NOTE | 2023-06-29 13:17 | ED Physician Documentation ---
PD HPI CHEST PAIN - Stated complaint Stated Complaint: CHEST PRESSURE - Chief complaint Chief Complaint: Cardiac - History obtained from History obtained from: Patient - Additional information Additional information: 53-year-old gentleman with history of hypertension. No tobacco use. He has a family history of heart disease and a 7-year-old grandfather. He was drinking coffee this morning and developed substernal chest pain. It is very mild in general but becomes severe immediately after drinking hot or cold liquids and then tapers off after about 45 seconds. No shortness of breath, radiation to the back. No pedal edema, calf pain, recent travel. PD PAST MEDICAL HISTORY - Past Medical History Past Medical History: Yes Cardiovascular: Hypertension Respiratory: None Neuro: Tremors Endocrine/Autoimmune: Type 2 diabetes GI: GERD : None HEENT: None Psych: None Musculoskeletal: None Derm: None - Past Surgical History Past Surgical History: Yes Ortho: Arthroscopic surgery, Other - Present Medications Home Medications: Ambulatory Orders Medication Instructions Recorded Confirmed Losartan/Hydrochlorothiazide 25 each PO DAILY 04/24/20 05/16/23 [Losartan-Hctz 100-12.5 mg Tab] Gabapentin [Neurontin] 300 mg PO HS 12/10/22 05/16/23 Propranolol [Inderal] 40 mg PO TID 12/10/22 05/16/23 metFORMIN [Glucophage] 500 mg PO BIDWM 12/10/22 05/16/23 Oxycodone HCl/Acetaminophen 1 - 2 each PO Q6HR PRN #20 tablet 05/16/23 [Percocet 5-325 mg Tablet] - Allergies Allergies/Adverse Reactions: Allergies Allergy/AdvReac Type Severity Reaction Status Date / Time bee venom protein (honey bee) Allergy Anaphylaxis Verified 06/29/23 12:26 menthol Allergy Respiratory Verified 06/29/23 12:26 acetaminophen [From Vicodin] AdvReac Emesis Verified 05/16/23 20:42 hydrocodone [From Vicodin] AdvReac Emesis Verified 06/29/23 12:26 - Social History Does the pt smoke?: No Smoking Status: Never smoker Does the pt drink ETOH?: Yes Does the pt have substance abuse?: No - Immunizations Immunizations are current?: Yes - POLST Patient has POLST: No PD ED PE NORMAL - Vitals Vital signs reviewed: Yes - General General: Alert and oriented X 3, No acute distress - Cardiac Cardiac: RRR, No murmur - Respiratory Respiratory: No respiratory distress, Clear bilaterally - Abdomen Abdomen: Non tender - Back Back: No CVA TTP, No spinal TTP - Derm Derm: Normal color, Warm and dry - Extremities Extremities: No edema, No calf tenderness / cord - Neuro Neuro: Alert and oriented X 3, Normal speech Results - Vitals Vitals: Vital Signs - 24 hr 06/29/23 12:27 Temperature 36.5 C Heart Rate 82 Respiratory 16 Rate Blood Pressure 150/99 H O2 Saturation 98 Oxygen O2 Source Room air - EKG (time done) 1317 EKG releavant findings:: EKG personally interpreted by author of this note. Relevant findings are: Rate: Rate (enter#) (67) Rhythm: NSR [place]: Normal Intervals: Normal [place] QRS: Normal Ischemia: Non specific changes. No: ST elevation c/w ischemia, ST depression - Labs Labs: Laboratory Tests 06/29/23 06/29/23 12:39 12:39 WBC 6.4 RBC 4.75 Hgb 14.9 Hct 43.8 MCV 92.2 MCH 31.4 H MCHC 34.0 RDW 13.0 Plt Count 241 MPV 9.5 Neut # (Auto) 4.1 Lymph # (Auto) 1.7 [place] # (Auto) 0.5 Eos # (Auto) 0.1 Baso # (Auto) 0.0 Absolute Nucleated RBC 0.00 Nucleated RBC % 0.0 Sodium 137 Potassium 4.1 Chloride 103 Carbon Dioxide 29 Anion Gap 5.0 L BUN 10 Creatinine 0.9 Estimated GFR (MDRD) 88 L Glucose 132 H Calcium 9.4 Total Bilirubin 1.5 H AST 33 ALT 63 H Alkaline Phosphatase 57 Troponin I High Sens 3.4 Total Protein 6.7 Albumin 4.3 Globulin 2.4 Albumin/Globulin Ratio 1.8 Lipase 12 PD Medical Decision Making - ED course ED course: He has chest pain but is really mild unless he drinks liquids at which point it becomes severe for about 45 seconds which is very suggestive of an esophageal issue. CBC unremarkable. CMP showing very mild elevation in bilirubin which is chronic looking at old labs and he is not tender in the right upper quadrant. Will trial a GI cocktail as I suspect that will be helpful for him. His troponin is negative/normal. 53-year-old gentleman presents with very atypical chest pain. He says it really only had some after he drinks hot or cold liquids. Liquids of normal temperature do not really trigger it. Workup in the emergency department was negative/normal. HEART score 2 Departure - Departure Disposition: 01 Home, Self Care Clinical Impression: Chest pain Qualifiers: Chest pain type: unspecified Qualified Code(s): R07.9 - Chest pain, unspecified Condition: Good Record reviewed to determine appropriate education?: Yes Instructions: ED Chest Pain NonCardiac Follow-Up: Maribell Platt ARNP [Primary Care Provider] - [facility] [Provider Group] Comments: As discussed, the trigger with hot or cold liquids is very suggestive of an esophageal cause of your chest pain. On this form is the number for the local surgery office. Recommend talking with your primary care nurse practitioner about a referral to them for consideration for upper endoscopy. Return for new or worsening symptoms. I would recommend doubling your omeprazole to twice a day for the next week as that may help calm this down. There is no evidence of cardiac disease currently. Return if worse. Forms: PCP List
--- NOTE | 2023-06-29 13:20 | XRAY Report ---
PROCEDURE: Chest 1V INDICATIONS: Chest pain TECHNIQUE: One view of the chest was acquired. COMPARISON: None. FINDINGS: Surgical changes and devices: None. Lungs and pleura: No pleural effusions or pneumothorax. Lungs are clear. Mediastinum: Mediastinal contours appear normal. Heart size is normal. Bones and chest wall: No suspicious bony lesions. Overlying soft tissues appear unremarkable. IMPRESSION: No acute cardiopulmonary process. Reviewed by: Rob Martinez MD on 06/29/2023 1:19 PM PST Approved by: Rob Martinez MD on 06/29/2023 1:19 PM PST Station ID: [id number]
[2023-06-29] MEDS: LIDOCAINE VISCOUS 2% 15 ML ORAL SYRINGE MM STA (13:29)
[2023-06-29] MEDS: MAG HYDROX/AL HYDROX/SIMETH 30 ML UDC PO STA (13:29)
[2023-06-29 14:03] VITALS: BP 148/88; O2SAT 100
== END 2023-06-29 13:59 | disposition home or self-care (01) ==
LOC: ED 12:21
DX: R07.9 Chest pain, unspecified (principal); I10 Essential (primary) hypertension; E11.9 Type 2 diabetes mellitus without complications; Z82.49 Family history of ischemic heart disease and other diseases of the circulatory system; Z79.899 Other long term (current) drug therapy; Z79.84 Long term (current) use of oral hypoglycemic drugs
CPT/HCPCS: 36415; 71045; 80053; 83690; 84484; 85025; 93005; 99283; 99284; A9270

== ENCOUNTER 2023-07-24 07:00 | Outpatient (CLI) | payer MEDICAID ==
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
== END 2023-07-24 23:59 | disposition home or self-care (01) ==
LOC: DI.S 07:00
PROVIDERS: ATTEND Emergency Medicine
DX: S20.222A Contusion of left back wall of thorax, initial encounter (principal)

== ENCOUNTER 2023-10-12 08:14 | Outpatient (CLI) | payer MEDICAID ==
[2023-10-12 14:56] LABS: CALCIUM 9.2 mg/dL (8.5-10.3); POTASSIUM 3.8 mmol/L (3.5-4.5)
[2023-10-12 20:46] LABS: ESTIMATED AVERAGE GLUCOSE 131 mg/dL (70-100); HEMOGLOBIN A1c% 6.2 % (4.27-6.07)
== END 2023-10-12 08:15 | disposition home or self-care (01) ==
LOC: LAB.S 08:14
PROVIDERS: ATTEND Registered Nurse
DX: E11.9 Type 2 diabetes mellitus without complications (principal)
CPT/HCPCS: 36415; 80048; 82043; 82570; 83036

== ENCOUNTER 2023-10-13 08:00 | Outpatient (CLI) | payer MEDICAID ==
[2023-10-13 16:14] LABS: CREATININE,URINE 60.3 mg/dL
[2023-10-13 16:18] LABS: MICROALBUMIN,URINE < 0.7 mg/dL
== END 2023-10-13 23:59 | disposition home or self-care (01) ==
LOC: LAB.F 08:00
PROVIDERS: ATTEND Registered Nurse
DX: E11.9 Type 2 diabetes mellitus without complications (principal)
CPT/HCPCS: 82043; 82570

== ENCOUNTER 2023-11-17 08:00 | Outpatient (CLI) | payer MEDICAID ==
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
== END 2023-11-17 23:59 | disposition home or self-care (01) ==
LOC: DI.S 08:00
PROVIDERS: ATTEND Physician Assistant Medical
DX: S83.8X1A Sprain of other specified parts of right knee, initial encounter (principal)

== ENCOUNTER 2024-01-13 10:54 | Outpatient (CLI) | payer MEDICAID ==
[2024-01-13 15:51] LABS: CALCIUM 9.1 mg/dL (8.5-10.3); POTASSIUM 4.2 mmol/L (3.5-4.5)
[2024-01-13 19:55] LABS: ESTIMATED AVERAGE GLUCOSE 128 mg/dL (70-100); HEMOGLOBIN A1c% 6.1 % (4.27-6.07)
== END 2024-01-13 10:55 | disposition home or self-care (01) ==
LOC: LAB.S 10:54
PROVIDERS: ATTEND Registered Nurse
DX: E11.9 Type 2 diabetes mellitus without complications (principal)
CPT/HCPCS: 36415; 80048; 83036